=== PATIENT | female | born 1970 | race Caucasian/White ===

== ENCOUNTER 2020-10-23 12:10 | Emergency (ER) | payer OTHER ==
[2020-10-23 16:54] LABS: HEMOGLOBIN 15.4 gm/dl (12.3-15.3); RED BLOOD COUNT 4.92 M/UL (4.00-5.10); WHITE BLOOD COUNT 8.1 K/UL (4.5-11.0)
[2020-10-23 17:23] LABS: BUN/CREATININE RATIO 21 (0-10)
[2020-10-23] MEDS ORDERED: MEDROL4 MG PO (17:57)
[2020-10-23] MEDS ORDERED: CEFUROXIME500 MG PO (17:57)
[2020-10-23] MEDS ORDERED: ZITHROMAX500 MG PO (17:57)
== END 2020-10-23 18:46 | disposition home or self-care (01) ==
LOC: ER1 12:10
PROVIDERS: Preventive Medicine Occupational Medicine
DX: U07.1 COVID-19 (principal); J12.82 Pneumonia due to coronavirus disease 2019; F17.210 Nicotine dependence, cigarettes, uncomplicated
CPT/HCPCS: 36600; 71045; 80053; 81001; 82550; 82553; 82803; 83605; 83874; 83880; 84484; 85025; 85652; 86140; 87086; 94664; 99285; J7030; U0002